=== PATIENT | female | born 1955 | race Caucasian/White ===

== ENCOUNTER 2020-05-24 10:15 | Inpatient (IN) | payer OTHER ==
[~2020-05-24] VITALS: Ht 162.6 cm; Wt 51.7 kg
[2020-05-24] MEDS ORDERED: WELLBUTRIN XL300 MG PO (14:29)
[2020-05-24] MEDS ORDERED: CLONAZEPAM2 M1 PO (14:29)
[2020-05-24] MEDS ORDERED: SYNTHROID75 MCG PO (14:30)
[2020-05-24] MEDS ORDERED: LYRICA20 MG/1 ML PO (14:31)
[2020-05-24] MEDS ORDERED: BACLOFEN10 MG PO (14:31)
[2020-05-24] MEDS ORDERED: LATANOPROST2.5 ML OP (14:31)
[2020-05-24] MEDS ORDERED: PROTONIX40 MG PO (14:32)
[2020-05-24] MEDS ORDERED: LEVSIN/SL0.125 MG SL (14:32)
[2020-05-24] MEDS ORDERED: SIMVASTATIN10 MG PO (14:32)
[2020-05-30] MEDS ORDERED: ESCITALOPRAM OX10 MG (09:46)
[2020-05-30] MEDS ORDERED: SUMATRIPTAN SU100 MG (09:47)
[2020-05-30] MEDS ORDERED: MIRTAZAPINE15 MG (09:47)
[2020-05-30] MEDS ORDERED: PREGABALIN25 MG (09:47)
[2020-05-30] MEDS ORDERED: SYNTHROID100 MCG (09:47)
[2020-05-30] MEDS ORDERED: SIMVASTATIN20 MG (09:47)
[2020-05-30] MEDS ORDERED: ST. JOSEPH ASPI81 M2 (09:48)
== END 2020-06-02 18:29 | disposition home or self-care (01) | DRG 331 ==
LOC: SURH 05-30 05:28 → O/R 05-30 05:28 → SURH 05-30 10:15
PROVIDERS: ADMIT Colon & Rectal Surgery; ATTEND Colon & Rectal Surgery
PROC: 0DBP4ZZ Excision of Rectum, Percutaneous Endoscopic Approach (ICD-10-PCS; 2020-05-30)
PROC: 0DBM4ZZ Excision of Descending Colon, Percutaneous Endoscopic Approach (ICD-10-PCS; 2020-05-30)
PROC: 0DTN4ZZ Resection of Sigmoid Colon, Percutaneous Endoscopic Approach (ICD-10-PCS; principal; 2020-05-30 10:30)
DX: K57.32 Diverticulitis of large intestine without perforation or abscess without bleeding (principal); K58.9 Irritable bowel syndrome, unspecified; E03.8 Other specified hypothyroidism